=== PATIENT | female | born 2000 | race Two or more races ===

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

== ENCOUNTER 2025-04-15 15:49 | Emergency (ER) | payer OTHER ==
[~2025-04-15] VITALS: Ht 175.3 cm; Wt 59.0 kg
[2025-04-15 15:54] VITALS: BP 129/93; TEMP 97.9; O2SAT 99
[2025-04-15] MEDS ORDERED: FLUORESCEIN SODIUM OPHTH 1 EA STRIP ONE (16:03)
[2025-04-15] MEDS ORDERED: CLIN300C12 PO (16:12)
[2025-04-15] MEDS: FLUORESCEIN SODIUM OPHTH 1 EA STRIP OP ONE (16:16)
== END 2025-04-15 16:27 | disposition home or self-care (01) ==
LOC: ER 15:53
DX: H01.004 Unspecified blepharitis left upper eyelid (principal); B02.9 Zoster without complications; F17.200 Nicotine dependence, unspecified, uncomplicated; Z88.0 Allergy status to penicillin